=== PATIENT | female | born 1955 | race Caucasian/White ===

== ENCOUNTER 2018-04-18 16:40 | Emergency (ER) | payer BC ==
[~2018-04-18] VITALS: Ht 162.6 cm; Wt 63.5 kg
[2018-04-18] MEDS ORDERED: Percocet 5-3251 EACH PO (19:07)
== END 2018-04-18 19:30 | disposition home or self-care (01) ==
LOC: ER 16:40
DX: S52.572A Other intraarticular fracture of lower end of left radius, initial encounter for closed fracture (principal); S52.612A Displaced fracture of left ulna styloid process, initial encounter for closed fracture; W01.0XXA Fall on same level from slipping, tripping and stumbling without subsequent striking against object, initial encounter
CPT/HCPCS: 24675; 73100; 73110; 96361; 96374; 96375; 99283-25; J2405; J3010; J7030